=== PATIENT | male | born 1960 | race Caucasian/White ===

== ENCOUNTER 2018-11-14 15:57 | Emergency (ER) | payer MEDICARE ==
[~2018-11-14] VITALS: Ht 177.8 cm; Wt 85.0 kg
[2018-11-14 16:14] VITALS: BP 161/77
== END 2018-11-14 21:00 | disposition left against medical advice (07) ==
LOC: ER 15:57
DX: Z53.21 Procedure and treatment not carried out due to patient leaving prior to being seen by health care provider (principal)

== ENCOUNTER 2019-06-11 02:10 | Emergency (ER) | payer MEDICARE ==
[~2019-06-11] VITALS: Ht 170.2 cm; Wt 77.0 kg
[2019-06-11 03:19] VITALS: BP 138/75
== END 2019-06-11 04:05 | disposition home or self-care (01) ==
LOC: ER 03:46
DX: L55.0 Sunburn of first degree (principal); F19.10 Other psychoactive substance abuse, uncomplicated; F17.200 Nicotine dependence, unspecified, uncomplicated; F15.10 Other stimulant abuse, uncomplicated
CPT/HCPCS: 16000; 99283; 99284

== ENCOUNTER 2020-04-12 14:39 | Emergency (ER) | payer MEDICARE ==
[~2020-04-12] VITALS: Ht 170.2 cm; Wt 75.0 kg
[2020-04-12] MEDS ORDERED: KETOROLAC 30MG/ML VIAL IV STA (15:14)
[2020-04-12] MEDS ORDERED: ONDANSETRON HCL 4MG/2ML INJ IV STA (15:14)
[2020-04-12] MEDS ORDERED: SODIUM CHLORIDE 0.9% 1,000 ML IV ONE (15:14)
[2020-04-12 17:11] LABS: BASOPHILS % 0.8 % (0.0-2.0); EOSINOPHILS % 3.5 % (0.0-5.0); HEMATOCRIT. 47.3 % (42.0-52.0); HEMOGLOBIN. 16.1 g/dL (14.0-18.0); MEAN CORPUSCULAR HEMOGLOBIN 29.2 pg (28.0-32.0); MEAN CORPUSCULAR VOLUME 85.8 fL (80.0-94.0); MEAN PLATELET VOLUME 7.2 fl (7.4-10.4); MONOCYTES % 8.8 % (2.0-8.0); NEUTROPHILS % 71.9 % (40.0-76.0); PLATELET 287 x1000/uL (130-400); RED BLOOD CELL COUNT 5.52 mill/uL (4.7-6.1); RED CELL DISTRIBUTION WIDTH 14.3 % (11.6-14.6)
[2020-04-12 17:26] LABS: CHLORIDE 107 mEq/L (98-107)
[2020-04-12 17:29] LABS: ETHANOL BLOOD < 10 mg/dL
[2020-04-12 17:33] LABS: CREATINE KINASE 134 IU/L (39-308)
[2020-04-12 17:53] LABS: CLARITY URINE CLEAR (CLEAR); COLOR URINE YELLOW (YELLOW); KETONES URINE NEGATIVE (NEGATIVE); LEUKOCYTE ESTERASE URINE NEGATIVE (NEGATIVE); NITRITE URINE NEGATIVE (NEGATIVE); OCCULT BLOOD URINE NEGATIVE (NEGATIVE); PH URINE 5.5 (4.5-8.0); PROTEIN URINE NEGATIVE (NEGATIVE); SPECIFIC GRAVITY URINE 1.019 (1.005-1.030); UROBILINOGEN URINE 0.2 E.U./dL (0.2-1.0)
[2020-04-12 18:00] VITALS: BP 148/78
[2020-04-12 18:13] LABS: *BENZODIAZEPINES SCREEN URINE NEGATIVE (NEGATIVE); *COCAINE SCREEN URINE NEGATIVE (NEGATIVE); METHADONE URINE SCREEN NEGATIVE (NEGATIVE); OPIATES URINE SCREEN NEGATIVE (NEGATIVE)
[2020-04-12 18:14] LABS: *AMPHETAMINES SCREEN URINE PRESUMTIVE POSITIVE (NEGATIVE); *BARBITURATES SCREEN URINE NEGATIVE (NEGATIVE); CANNABINOID URINE SCREEN NEGATIVE (NEGATIVE); PHENCYCLIDINE URINE SCREEN NEGATIVE (NEGATIVE)
== END 2020-04-12 19:46 | disposition home or self-care (01) ==
LOC: ER 14:39
DX: F15.10 Other stimulant abuse, uncomplicated (principal); F17.210 Nicotine dependence, cigarettes, uncomplicated
CPT/HCPCS: 36415; 71045; 80053; 80305; 80320; 81003; 82550; 83690; 83880; 85025; 93005; 99285; J7030; J1885; J2405; G0480

== ENCOUNTER 2021-01-18 13:47 | Emergency (ER) | payer MEDICARE ==
[~2021-01-18] VITALS: Ht 177.8 cm; Wt 100.0 kg
[2021-01-18] MEDS ORDERED: POLY10DR EACHEYE (15:18)
[2021-01-18 15:30] VITALS: BP 128/78
== END 2021-01-18 15:36 | disposition home or self-care (01) ==
LOC: ER 13:47
DX: S60.512A Abrasion of left hand, initial encounter (principal); S00.31XA Abrasion of nose, initial encounter; I10 Essential (primary) hypertension; F15.10 Other stimulant abuse, uncomplicated; W01.0XXA Fall on same level from slipping, tripping and stumbling without subsequent striking against object, initial encounter; Y93.89 Activity, other specified; Y92.89 Other specified places as the place of occurrence of the external cause
CPT/HCPCS: 73130; 93005; 99283

== ENCOUNTER 2021-08-08 18:57 | Emergency (ER) | payer MEDICARE ==
[~2021-08-08] VITALS: Ht 177.8 cm; Wt 100.0 kg
[~2021-08-08 18:57] MED LIST: POLY10DR EACHEYE
[2021-08-08] MEDS ORDERED: DOXYCYCLINE HYCLATE 100MG CAPSULE PO ONE (20:00)
[2021-08-08] MEDS ORDERED: SODIUM CHLORIDE 0.9% 1000ML BAG (SEPSIS BOLUS) IV ONE (20:00)
[2021-08-08] MEDS ORDERED: CEFTRIAXONE 1 G PREMIX 50 ML IV ONE (20:00)
[2021-08-08 20:33] LABS: BASOPHILS % 0.4 % (0.0-2.0); EOSINOPHILS % 1.7 % (0.0-5.0); HEMATOCRIT. 45.5 % (42.0-52.0); HEMOGLOBIN. 15.2 g/dL (14.0-18.0); MEAN CORPUSCULAR HEMOGLOBIN 27.7 pg (28.0-32.0); MEAN CORPUSCULAR VOLUME 82.6 fL (80.0-94.0); MEAN PLATELET VOLUME 7.2 fl (7.4-10.4); MONOCYTES % 10.6 % (2.0-8.0); NEUTROPHILS % 70.3 % (40.0-76.0); PLATELET 211 x1000/uL (130-400); RED BLOOD CELL COUNT 5.51 mill/uL (4.7-6.1); RED CELL DISTRIBUTION WIDTH 14.3 % (11.6-14.6)
[2021-08-08 20:38] LABS: CHLORIDE 100 mEq/L (98-107)
[2021-08-08] MEDS ORDERED: POLYMYXIN B SULFATE/TMP 10ML BOTTLE LEFTEYE SCH (22:30)
[2021-08-09 00:55] VITALS: BP 122/75
[2021-08-09] MEDS ORDERED: ALBU6.7H9 INH (17:06)
== END 2021-08-09 00:56 | disposition home or self-care (01) ==
LOC: ER 18:57
DX: U07.1 COVID-19 (principal); B34.9 Viral infection, unspecified; F15.10 Other stimulant abuse, uncomplicated; F17.210 Nicotine dependence, cigarettes, uncomplicated
CPT/HCPCS: 36415; 71045; 80053; 83605; 83880; 84484; 85025; 87040; 96365; 96366; 99285; C9803; J0696; J7030; U0003; U0005; Z7610

== ENCOUNTER 2021-08-09 16:32 | Emergency (ER) | payer MEDICARE ==
[~2021-08-09] VITALS: Ht 177.8 cm; Wt 88.0 kg
[2021-08-09] MEDS ORDERED: ALBU6.7H9 INH (17:06)
[2021-08-09 17:30] VITALS: BP 133/62
== END 2021-08-09 17:30 | disposition home or self-care (01) ==
LOC: ER 16:32
DX: U07.1 COVID-19 (principal); F15.10 Other stimulant abuse, uncomplicated; M06.9 Rheumatoid arthritis, unspecified
CPT/HCPCS: 99283

== ENCOUNTER 2022-07-29 16:04 | Emergency (ER) | payer MEDICAID, MEDICARE, OTHER ==
[~2022-07-29] VITALS: Ht 165.1 cm; Wt 75.0 kg
[~2022-07-29 16:04] MED LIST changes: +ALBU6.7H9 INH
[2022-07-29 22:25] VITALS: BP 112/77
== END 2022-07-29 22:26 | disposition home or self-care (01) ==
LOC: ER 16:04
DX: S09.8XXA Other specified injuries of head, initial encounter (principal); W22.8XXA Striking against or struck by other objects, initial encounter; Y93.89 Activity, other specified; Y92.89 Other specified places as the place of occurrence of the external cause
CPT/HCPCS: 99284

== ENCOUNTER 2024-11-13 11:47 | Emergency (ER) | payer MEDICAID, OTHER ==
[~2024-11-13] VITALS: Ht 175.3 cm; Wt 80.0 kg
[~2024-11-13 11:47] MED LIST changes: +ALBU6.7H3 INH; -ALBU6.7H9 INH
[2024-11-13 11:48] VITALS: BP 133/84; PULSE 87; RESP 20; TEMP 98.3; O2SAT 94
== END 2024-11-13 18:05 | disposition left against medical advice (07) ==
LOC: ER 13:15
DX: R05.9 Cough, unspecified (principal); E11.9 Type 2 diabetes mellitus without complications; I10 Essential (primary) hypertension; Z79.899 Other long term (current) drug therapy; Z53.21 Procedure and treatment not carried out due to patient leaving prior to being seen by health care provider
CPT/HCPCS: 71045